=== PATIENT | female | born 1975 | race American Indian/Alaskan Native ===

== ENCOUNTER 2018-12-25 20:16 | Emergency (ER) | payer MEDICAID ==
--- NOTE | 2018-12-25 21:21 | Emergency Department Report ---
Blank Doc - Documentation Documentation: 43 y/o female confirm preg. Having vag bleeding 5 weeks preg went to ER yesterday [facility] Arcos yesterday .
[2018-12-25] MEDS ORDERED: TYLENOL PO ONE (21:22)
[2018-12-25] MEDS ORDERED: TYLENOL ONE (21:22)
[2018-12-25 21:54] LABS: Basophils % (Auto) 0.7 % (0.0-1.8); Eosinophils # (Auto) 0.1 K/mm3 (0.0-0.4); Hematocrit 25.4 % (30.3-42.9); Hemoglobin 8.2 gm/dl (10.1-14.3); Lymphocytes % (Auto) 42.1 % (13.4-35.0); Mean Corpuscular HGB Conc 32 % (30-34); Monocytes # (Auto) 0.6 K/mm3 (0.0-0.8); Monocytes % (Auto) 8.8 % (0.0-7.3); Platelet Count 371 K/mm3 (140-440); Red Blood Count 4.02 M/mm3 (3.65-5.03)
[2018-12-25 22:11] LABS: Mean Corpuscular Volume 63 fl (79-97)
--- NOTE | 2018-12-25 23:10 | Ultrasound Report ---
PROCEDURE: US OB <= 14 WEEKS FETUS TECHNIQUE: Real-time transabdominal and transvaginal sonography of the uterus, placenta, amniotic fl uid, adnexa, and fetus was performed with image documentation. Measurements were obtained to determin e age/size. M-mode Doppler was used to document heartbeat. ADDITIONAL GESTATION: None. HISTORY: 5 weeks with vag bleeding COMPARISONS: None . FINDINGS: The uterus size 6 x 5.6 x 6 cm. The endometrial pattern measures 14 mm. There is no evidence of gesta tional sac. There is a fibroid identified in the myometrium this measures 2.8 x 2.6 x 2.2 cm The righ t ovary has a size of 2.7 x 1.4 x 2.7 cm. The right ovary is normal. The left ovary is not visualized on this study. The findings may represent multiple etiologies including early , failure. Ectopic is not excluded on the basis this patient will need follow-up studies which could include s erial beta-hCG levels and perhaps repeat ultrasound in approximately 14 days. IMPRESSION: The uterus size is normal. There is a thickened endometrial pattern. No gestational sac i s seen on this study. The right ovary has a normal appearance. The left ovary is not visualized. The findings may indicate early or failure. Follow-up studies will be needed as marija levyed above. This document is electronically signed by Margaret Faustin DO., December 25 2018 11:08:53 PM [facility]
--- NOTE | 2018-12-25 23:16 | Ultrasound Report ---
PROCEDURE: US OB TRANSVAGINAL TECHNIQUE: Real-time transabdominal and transvaginal sonography of the uterus, and adnexa, . HISTORY: 5 weeks with vag bleeding COMPARISONS: None . FINDINGS: . Yolk Sac: Not seen. . Embryonic Cardiac Activity: Not seen . Gestational Sac: Not seen Placenta: Not seen Amniotic fluid: Not seen. Cervix: Normal. Right Ovary: 2.7 x 2.7 x 1.4 cm . Left Ovary: Not seen . Uterus : 9.6 x 6.0 x 5.6 cm. There is 2.8 cm hypoechoic mass consistent with fibroid IMPRESSION: No intrauterine gestation seen. Uterine fibroid. This document is electronically signed by Leandro Rowland MD., December 25 2018 11:14:36 PM ET
[2018-12-26 00:13] LABS: Bilirubin,Urine NEG (Negative); Blood,Urine LG (Negative); Color,Urine Yellow (Yellow); Mucus,Urine 3+ /HPF
[2018-12-26] MEDS ORDERED: NORMODYNE PO ONE (01:17)
[2018-12-26] MEDS ORDERED: NORMODYNE ONE (01:20)
--- NOTE | 2018-12-26 01:50 | Emergency Department Report ---
HPI - General Chief Complaint: Vaginal Bleeding Time Seen by Provider: 12/26/18 01:35 - HPI HPI: Room 3 The patient is a 43-year-old female presenting with a chief complaint of vaginal bleeding. The patient states she is and yesterday began having vaginal spotting. The patient went to [facility] emergency department stay she had blood work and ultrasound performed. The patient states she was told they were unable to see anything on ultrasound possibly secondary to being a very early . The patient was instructed to return to the ED if the bleeding increases. The patient states today at 18:00 vaginal bleeding increased to that of a normal menses cycle and she began having suprapubic pain and low back pressure. This prompted the patient come to the emergency department. The patient states she has not yet seen an [facility] for this Location: Genitourinary system Duration: [See above] Quality: [See above] Severity: [See above] Modifying factors: [see above] Context: [see above] Mode of transportation: [not driving] ED Past Medical Hx - Past Medical History Hx Hypertension: Yes - Surgical History Past Surgical History?: No - Family History Family history: no significant - Social History Smoking Status: Never Smoker Substance Use Type: None - Medications Home Medications: Home Medications Medication Instructions Recorded Confirmed Last Taken Type Nitrofurantoin Monohyd/M-Cryst 100 mg PO BID #14 capsule 12/26/18 Unknown Rx [Macrobid 100 mg Capsule] ED Review of Systems ROS: Stated complaint: VAGINAL BLEEDING 6 WEEKS Other details as noted in HPI Constitutional: no symptoms reported Eyes: denies: eye pain ENT: denies: throat pain Respiratory: no symptoms reported Cardiovascular: denies: chest pain Endocrine: no symptoms reported Gastrointestinal: abdominal pain Genitourinary: abnormal menses Musculoskeletal: back pain Neurological: denies: headache Physical Exam - Physical Exam Vital Signs: Vital Signs 12/25/18 12/25/18 12/26/18 20:37 21:16 00:56 Temperature 98.5 F 98.5 F 98.4 F Pulse Rate 80 81 75 Respiratory 18 18 16 Rate Blood Pressure 186/92 186/92 204/105 O2 Sat by Pulse 100 100 100 Oximetry 12/26/18 01:19 Temperature Pulse Rate 75 Respiratory Rate Blood Pressure 204/105 O2 Sat by Pulse Oximetry Physical Exam: GENERAL: The patient is well-developed well-nourished female lying on stretcher not appearing to be in acute distress. [] HEENT: Normocephalic. Atraumatic. Extraocular motions are intact. Patient has moist mucous membranes. NECK: Supple. Trachea midline CHEST/LUNGS: Clear to auscultation. There is no respiratory distress noted. HEART/CARDIOVASCULAR: Regular. There is no tachycardia. There is no gallop rub or murmur. ABDOMEN: Abdomen is soft, with mild discomfort to palpation in the suprapubic region. Patient has normal bowel sounds. There is no abdominal distention. SKIN: There is no rash. There is no edema. There is no diaphoresis. NEURO: The patient is awake, alert, and oriented. The patient is cooperative. The patient has normal speech MUSCULOSKELETAL: There is no evidence of acute injury. ED Course Vital Signs 12/25/18 12/25/18 12/26/18 20:37 21:16 00:56 Temperature 98.5 F 98.5 F 98.4 F Pulse Rate 80 81 75 Respiratory 18 18 16 Rate Blood Pressure 186/92 186/92 204/105 O2 Sat by Pulse 100 100 100 Oximetry 12/26/18 01:19 Temperature Pulse Rate 75 Respiratory Rate Blood Pressure 204/105 O2 Sat by Pulse Oximetry ED Medical Decision Making - Lab Data Result diagrams: 12/25/18 21:22 Laboratory Tests 12/25/18 12/25/18 12/25/18 21:22 21:22 21:22 WBC 7.0 RBC 4.02 Hgb 8.2 L Hct 25.4 L MCV 63 L MCH 20 L MCHC 32 RDW 20.0 H Plt Count 371 Lymph % (Auto) 42.1 H [place] % (Auto) 8.8 H Eos % (Auto) 1.0 Baso % (Auto) 0.7 Lymph # 3.0 [place] # 0.6 Eos # 0.1 Baso # 0.0 Seg Neutrophils % 47.4 Seg Neutrophils # 3.3 HCG, Quant 256.6 H Urine Color Urine Turbidity Urine pH Ur Specific [place] Urine Protein Urine Glucose (UA) Urine Ketones Urine Blood Urine Nitrite Urine Bilirubin Urine Urobilinogen Ur Leukocyte Esterase Urine WBC (Auto) Urine RBC (Auto) U Epithel Cells (Auto) Urine Mucus Urine Yeast (Budding) Blood Type O POSITIVE Ord Rhogam Gestat Weeks Rh pos 12/25/18 23:43 WBC RBC Hgb Hct MCV MCH MCHC RDW Plt Count Lymph % (Auto) [place] % (Auto) Eos % (Auto) Baso % (Auto) Lymph # [place] # Eos # Baso # Seg Neutrophils % Seg Neutrophils # HCG, Quant Urine Color Yellow Urine Turbidity Clear Urine pH 6.0 Ur Specific [place] 1.025 Urine Protein 30 mg/dl Urine Glucose (UA) Neg Urine Ketones Neg Urine Blood Lg Urine Nitrite Neg Urine Bilirubin Neg Urine Urobilinogen 2.0 Ur Leukocyte Esterase Tr Urine WBC (Auto) 10.0 H Urine RBC (Auto) 86.0 U Epithel Cells (Auto) 3.0 Urine Mucus 3+ Urine Yeast (Budding) Few Blood Type Ord Rhogam Gestat Weeks - Medical Decision Making Serum hCG from [facility] obtained and was found to be 303.6. The patient's hCG today was 256 which suggests the patient is having a miscarriage. Patient instructed to follow up with [facility] in 24-48 hours for repeat hCG - Differential Diagnosis threatened , spontaneous abortions, incomplete Critical care attestation.: If time is entered above; I have spent that time in minutes in the direct care o f this critically ill patient, excluding procedure time. ED Disposition Clinical Impression: Threatened , UTI (urinary tract infection) Disposition: - TO HOME OR SELFCARE Is pt being admited?: No Does the pt Need Aspirin: No Condition: Stable Instructions: Threatened Miscarriage (ED), Spontaneous Miscarriage (ED) Additional Instructions: Return to the emergency department immediately should you develop worsening symptoms, fever, inability to tolerate food or liquid or any other concerns. Prescriptions: Nitrofurantoin Monohyd/M-Cryst [Macrobid 100 mg Capsule] 100 mg PO BID #14 capsule Referrals: CASIE QURESHI MD [Primary Care Provider] - 3-5 Days [facility] [Provider Group] - [place] Time of Disposition: 02:18
[2018-12-26 01:58] VITALS: BP 191/93
== END 2018-12-26 02:25 | disposition home or self-care (01) ==
LOC: ED 20:16
DX: O20.0 Threatened abortion (principal); O23.41 Unspecified infection of urinary tract in pregnancy, first trimester; O16.1 Unspecified maternal hypertension, first trimester; Z3A.01 Less than 8 weeks gestation of pregnancy
CPT/HCPCS: 36415; 76801; 76817; 81001; 84702; 85025; 86900; 86901; 99284